=== PATIENT | female | born 1975 ===

== ENCOUNTER 2023-11-15 10:44 | Observation (INO) ==
--- NOTE | 2023-11-03 21:34 | Anesthesiology Consultation ---
Date of Service November 03, 2023 Assessment & Plan (1) Encounter for pre-operative examination: - Check test AM DOS - Infectious disease screening: Per assessment on 11/03/23: No known recent infectious disease contacts or current infectious disease symptoms. Chart Review Chart Review: Acceptable Risk for Surgery and Patient NOT seen in Pre Admission Testing History Surgery Operation Date: 11/15/23 12:45 Proposed Procedures p Robotic Laparoscopic Removal of the Uterus and Both Fallopian Tubes, Removal of Left Ovary and Possible Removal of Right Ovary, Cystoscopy - Adam Alcantara MD Height/Weight Height: 5 ft Weight: 49.895 kg Allergies Allergy/AdvReac Type Severity Reaction Status Date / Time amoxicillin [From Augmentin] Allergy Unknown nausea/vomi Verified 11/03/23 15:00 ting cephalexin [From Keflex] Allergy Unknown nausea/vomi Verified 11/03/23 15:00 ting clavulanic acid Allergy Unknown nausea/vomi Verified 11/03/23 15:00 [From Augmentin] ting sulfamethoxazole Allergy Unknown Rash Verified 11/03/23 15:00 [From Bactrim] trimethoprim [From Bactrim] Allergy Unknown Rash Verified 11/03/23 15:00 fexofenadine [From [place]] AdvReac Intermediate lightheaded Verified 11/03/23 15:00 ness Medications Home Medications Medication Instructions Recorded Confirmed Last Taken acetaminophen 500 mg tablet 500 mg PO Q6H PRN prn 09/18/20 11/03/23 Unknown (Tylenol Extra Strength) cetirizine 10 mg tablet (Zyrtec) 10 mg PO QPM PRN prn 09/18/20 11/03/23 Unknown naproxen sodium 220 mg tablet 220 mg PO BID PRN prn 09/18/20 11/03/23 Unknown (Aleve) cholecalciferol (vitamin D3) 50 50 mcg PO QPM 09/19/21 11/03/23 Unknown mcg (2,000 unit) capsule multivitamin (Daily Multi-Vitamin 1 tab PO QAM 09/19/21 11/03/23 Unknown tablet) Lactobacillus acidophilus 250 1,000 mmu cells PO QPM 11/03/23 11/03/23 Unknown million cell capsule (Probiotic Acidophilus) ibuprofen 200 mg tablet 200 mg PO Q6H PRN prn 11/03/23 11/03/23 Unknown omeprazole magnesium 20 mg 20 mg PO DAILY PRN prn 11/03/23 11/03/23 Unknown tablet,delayed release (Prilosec OTC) Past Medical History Medical History GERD (gastroesophageal reflux disease) Hx of recurrent urinary tract infection Seasonal allergies Past Family History Family History Denies family history of Ovarian cancer Breast cancer Colorectal cancer Uterine cancer Past Surgical History Surgical History History of anesthesia reaction hypotensive during C section (medically managed) History of section History of wisdom tooth extraction Social History Smoking Status: Never smoker Do You Dip or Chew Tobacco: No Hx Alcohol Use: No Hx Substance Use: No substance use type: does not use
[~2023-11-15 10:44] MED LIST: ACETAMINOPHEN 1000 MG/100 ML IV IV ONE; KETAMINE HCL 10MG/ML SYR ONE
[2023-11-15] MEDS ORDERED: MIDAZOLAM HCL 1 MG/ML 2ML VIAL ONE (10:49)
[2023-11-15] MEDS ORDERED: fentaNYL citrate PF 100 MCG/2 ML VIAL ONE (10:49)
[2023-11-15 11:13] LABS: Basophils # (auto) 0.03 K/uL (0.00-0.20); Basophils % (auto) 0.5 %; Eosinophils # (auto) 0.08 K/uL (0.00-0.50); Eosinophils % (auto) 1.4 %; Hematocrit (blood only) 41.7 % (37.0-47.0); Hemoglobin 13.8 g/dl (12.0-16.0); Immature Granulocytes # (auto) 0.02 K/uL (0.01-0.20); Immature Granulocytes % (auto) 0.4 %; Lymphocytes # (auto) 1.58 K/uL (1.20-3.40); Lymphocytes % (auto) 27.8 %; Mean Corpuscular Hemoglobin 29.9 pg (25.0-34.0); Mean Corpuscular Hgb Conc 33.1 g/dL (32.0-36.0); Mean Corpuscular Volume 90.3 fL (80.0-100.0); Mean Platelet Volume 9.9 fL (9.4-12.4); Monocytes # (auto) 0.54 K/uL (0.11-0.59); Monocytes % (auto) 9.5 %; Neutrophils # (auto) 3.44 K/uL (1.40-6.50); Neutrophils % (auto) 60.4 %; Platelet Count 252 K/uL (130-400); RDW Coefficient of Variation 12.4 % (11.5-14.5); RDW Standard Deviation 40.3 fL (36.4-46.3); Red Blood Count 4.62 M/uL (4.20-5.40); White Blood Count 5.69 K/ul (4.8-10.8)
[2023-11-15] MEDS: LACTATED RINGER'S 1,000 ML IV SCH (11:20)
[2023-11-15] MEDS: LR 15ML/HR IV SCH (11:21)
[2023-11-15] MEDS: PHENAZOPYRIDINE HCL 100 MG TAB PO SCH (11:26)
[2023-11-15] MEDS ORDERED: ATROPINE SULFATE 0.1 MG/ML 10ML SYR IV PRN (11:52)
[2023-11-15] MEDS ORDERED: HYDROmorphone INJ 1 MG/ML SYRINGE IV PRN (11:52)
[2023-11-15] MEDS ORDERED: ePHEDrine sulfate 50 MG/ML AMP IV PRN (11:52)
[2023-11-15] MEDS ORDERED: PROMETHAZINE HCL 6.25 MG in SODIUM CHLORIDE 0.9% 50 ML IV PRN (11:52)
[2023-11-15] MEDS ORDERED: ONDANSETRON INJ 2 MG/ML 2 ML VIAL IV PRN (11:52)
[2023-11-15] MEDS: SCOPOLAMINE 1 MG/72 HR TDSY PATCH TD ONE ×2 (11:54)
--- NOTE | 2023-11-15 11:58 | History & Physical Bridge Note ---
Date of Service November 15, 2023 History & Physical Bridge Note I have examined the patient, reviewed the History & Physical and in the interval since the performance of the History & Physical I have noted the following changes of clinical significance: no changes noted
[2023-11-15] MEDS: ceFAZolin 2000MG 2,000 MG/15 ML SYR IV SCH (12:43)
[2023-11-15] MEDS ORDERED: PROPOFOL IV EMULSION 10 MG/ML 20 ML VIAL IV ONE (13:52)
[2023-11-15] MEDS ORDERED: LIDOCAINE 2% 2 ML VIAL/AMP(20MG/ML) INFIL ONE (13:53)
[2023-11-15] MEDS ORDERED: GLYCOPYRROLATE 0.2 MG/ML VIAL ONE (13:53)
[2023-11-15] MEDS ORDERED: ROCURONIUM BROMIDE 10 MG/ML 5 ML VIAL IV ONE ×3 (13:53→15:35)
[2023-11-15] MEDS ORDERED: SODIUM CHLORIDE 0.9% PF INJ 10 ML VIAL ONE (13:53)
[2023-11-15] MEDS ORDERED: ePHEDrine sulfate 50 MG/ML AMP ONE (13:53)
[2023-11-15] MEDS ORDERED: SUGAMMADEX SODIUM 200 MG/2 ML VIAL IV ONE (14:10)
[2023-11-15] MEDS: ceFAZolin 2000MG 2,000 MG/15 ML SYR IV ONE (16:55)
[2023-11-15] MEDS: BUPIVACAINE 0.5 % 5 MG/1 ML MPF 30ML VIAL ONE (17:00)
--- NOTE | 2023-11-15 17:12 | Operative Report ---
PG Post Operative Report Pre & Post Diagnosis Operation Date: 11/15/23 12:30 Pre-Op Diagnosis: Endometrioma of Ovary, Endometriosis, Chronic Pelvic Pain, Menorrhagia, Dysmenorrhea, Post-Op Diagnosis: Endometrioma of Ovary, Endometriosis, Chronic Pelvic Pain, Menorrhagia, Dysmenorrhea, cystotomy I identified the patient and participated in the time-out.: No Procedure Operation Date: 11/15/23 12:30 Actual Procedures Robot-assisted laparoscopic bladder repair Surgeon Chepe Rodrigues MD Sales Representative Business Courses Gonzalo Perry MD Estimated Blood Loss 0 Findings See Below Cystotomy at the dome of the bladder, repaired and multilayer closure Specimens None Drains Bernabe catheter per urethra Anesthesia Type General Complications none Disposition Disposition: Recovery Room Indications This is a 48-year-old female currently undergoing robot-assisted laparoscopic hysterectomy with intraoperative bladder injury. Urology was consulted for bladder repair. This was initially evaluated by my partner, Dr. Perry who completed most of the repair and he will be coming for a second opinion. Description of Procedure On arrival, the patient was already under anesthesia with the robot docked and the camera surveying the pelvis. The uterus had been removed and the cervical cuff was closed. The dome of the bladder was largely repaired although there was a 1 to 2 mm cystotomy in the mucosal layer. The muscularis layer had not yet been closed. After careful inspection, the existing suture was tied. The cystotomy was closed using an interrupted [id number] suture with 4-0 Monocryl. The bladder was then tested and found to be watertight. The muscularis layer was then closed using a running 3-0 V-Loc suture. Bladder was again leak tested and found to be still watertight. Cystoscopy was performed by my partner, Dr. Perry who will dictate this separately. Of note, there was no leakage of fluid from the bladder during this. At this point, the case was returned to the primary surgeon, Dr. Alcantara, for final inspection closure. I attest to the content of the Intraoperative Record and any orders documented therein. Any exceptions are noted below.
[2023-11-15] MEDS ORDERED: oxyCODONE/ACETAMINOPHEN 5mg/325mg TAB PO PRN ×2 (17:16)
[2023-11-15] MEDS ORDERED: KETOROLAC 30 MG/ML VIAL IV PRN (17:16)
--- NOTE | 2023-11-15 17:16 | Operative Report ---
PG Post Operative Report Pre & Post Diagnosis Operation Date: 11/15/23 12:30 Pre-Op Diagnosis: Endometrioma of Ovary, Endometriosis, Chronic Pelvic Pain, Menorrhagia, Dysmenorrhea Post-Op Diagnosis: Endometrioma of Ovary, Endometriosis, Chronic Pelvic Pain, Menorrhagia, Dys menorrhea I identified the patient and participated in the time-out.: Yes Procedure Operation Date: 11/15/23 12:30 Actual Procedures p Robotic Assisted Laparoscopic Removal of the Uterus and Both Fallopian Tubes, Removal of Both Ovaries, Cystoscopy(Bilateral) - Adam Alcantara MD Robotic assisted repair of intraoperative bladder injury Gonzalo Perry MD, Rodolfo Rodrigues MD Surgeon Gonzalo Perry MD Computer Programmer Chief None Estimated Blood Loss 0 Findings See Below Dense adhesion at dome of bladder to uterus. Significant endometrial implants on anterior abdominal wall. Adhesion was taken down but bladder had been skeletonized and there was a small hole at the dome. This was repaired in 2 layers by combination of myself and Dr. Rodrigues. Backfilling the bladder via cystoscopy showed no leak. Cystoscopy showed repair of a dome bladder injury both ureteral orifices effluxing clear yellow urine. Specimens None Drains 16 Greek Bernabe catheter with 10 cc balloon Anesthesia Type General Complications none Indications 48-year-old female with a history of C-sections who is presenting for hysterectomy. There was a dense adhesion at the dome of the bladder to the uterus and urology was intraoperatively consulted to help take this down. Description of Procedure When I entered the OR, there was a dense bladder adhesion at the dome to the uterus. Using a combination of blunt and sharp dissection, I carefully teased this away from the bladder. I was able to separate this but then manipulating the bladder, the tissue had been thinned significantly and a small hole was made. I closed this hole with 3-0 barbed Vicryl suture in a running fashion. I used two separate sutures and then the tails were tied together. The tissue was fairly friable and I wanted to ensure that her repair came together well as she is young and I did not want a persistent leak or to decrease her bladder c apacity significantly. I had my partner Dr. Rodrigues come in and review what I had fixed initially and asked his opinion on how to appropriately close the bladder in order to minimize any postoperative complications. At this point I scrubbed in to assist bedside and he oversewed a small defect in the bladder with 4-0 Monocryl and then closed the muscular layer with a 3-0 running barbed suture. Please refer to his specific operative note for detailed documentation. I then performed a cystoscopy in order to backfill the bladder and also visualize the repair and ensure the ureters were draining appropriately. The bladder was backfilled via the scope and there was no leak noted intra- abdominally. Both ureteral orifice ease were orthotopic in nature and effluxing clear urine. Repair at the dome was intact. Scope was removed and a 16 Greek Bernabe catheter was replaced and balloon was inflated with 10 cc of sterile water. We then turned the case back over to Dr. Alcantara. I went and spoke with the in the surgical waiting room to discuss our findings and repair and plan moving forward. I attest to the content of the Intraoperative Record and any orders documented therein. Any exceptions are noted below.
--- NOTE | 2023-11-15 17:19 | Post Operative Brief Note ---
PG Immediate Post Op with CF Date of Surgery November 15, 2023 Pre & Post Diagnosis Operation Date: 11/15/23 12:30 Pre-Op Diagnosis: Endometrioma of Ovary, Endometriosis, Chronic Pelvic Pain, Menorrhagia, Dysmenorrhea Post-Op Diagnosis: Endometrioma of Ovary, Endometriosis, Chronic Pelvic Pain, Menorrhagia, Dysmenorrhea I identified the patient and participated in the time-out.: Yes Procedure Operation Date: 11/15/23 12:30 Actual Procedures p Robotic Assisted Laparoscopic Removal of the Uterus and Both Fallopian Tubes, Removal of Both Ovaries, Cystoscopy(Bilateral) - Adam Alcantara MD Surgeon Adam Alcantara MD Preschool Adviser None Estimated Blood Loss 0 Findings Consistent with Post-Op Diagnosis Specimens Specimen Description: A: Uterus, Cervix, Bilateral Fallopian Tubes, Bilateral Ovaries Drains Bernabe Catheter (inserted at start of procedure by surgeon, removed at end of procedure.) Anesthesia Type General CATTLE SORTER Minor Procedure Codes Laparoscopy(ic) 17551 [facility] w/[facility] CATTLE SORTER Major Procedure Codes Hysterectomy 29476 TLH <250g +S/O Laparotomy/Laparoscopic 91163 [facility] w/[facility]
--- NOTE | 2023-11-15 18:23 | Anesthesiology Progress Note ---
Date of Service November 15, 2023 Anesthesia Post Procedure Vital Signs Vital Signs: Temp Pulse Resp BP Pulse Ox O2 Del Method O2 Flow Rate 11/15/23 18:20 60 15 103/63 100 Nasal Cannula 2 11/15/23 18:10 64 12 105/59 L 100 Nasal Cannula 2 11/15/23 18:00 59 L 14 110/60 100 Nasal Cannula 2 11/15/23 17:50 55 L 13 106/57 L 100 Oxymask 6 11/15/23 17:40 52 L 14 100/58 L 100 Oxymask 6 11/15/23 17:34 36.0 C L 60 16 104/56 L 99 Oxymask 6 11/15/23 11:19 36.7 C 62 20 109/53 L 100 Room Air Pain Intensity Pelvic: Pain Intensity: 3 Transfer of Care Handoff Completed per policy Notes Mental Status: alert / awake / arousable and participated in evaluation Patient Amnestic to Procedure: Yes Nausea / Vomiting: adequately controlled Pain: adequately controlled Airway Patency, RR, SpO2: stable & adequate BP & HR: stable & adequate Hydration State: stable & adequate Anesthetic Complications: no major complications apparent
[2023-11-15] MEDS: fentaNYL citrate PF 100 MCG/2 ML VIAL IV PRN (19:25)
[2023-11-15] MEDS: SIMETHICONE 80 MG CHEW PO PRN (20:46)
[2023-11-15] MEDS: ONDANSETRON INJ 2 MG/ML 2 ML VIAL IV PRN (20:46)
[2023-11-15] MEDS: ACETAMINOPHEN 325 MG TAB PO PRN (22:20)
--- NOTE | 2023-11-15 22:24 | Operative Report ---
PG Post Operative Report Pre & Post Diagnosis Operation Date: 11/15/23 12:30 Pre-Op Diagnosis: Endometrioma of Ovary, Endometriosis, Chronic Pelvic Pain, Menorrhagia, Dysmenorrhea Post-Op Diagnosis: Endometrioma of Ovary, Endometriosis, Chronic Pelvic Pain, Menorrhagia, Dys menorrhea I identified the patient and participated in the time-out.: Yes Procedure Operation Date: 11/15/23 12:30 Actual Procedures p Robotic Assisted Laparoscopic Removal of the Uterus and Both Fallopian Tubes, Removal of Both Ovaries, Cystoscopy, extensive lysis of adhesions(Bilateral) - Adam Alcantara MD s Bladder disection, Bladder Repair post extensive lysis of adhesions, cystoscopy - Gonzalo Perry MD Surgeon Adam Alcantara MD Children'S Counselor None Estimated Blood Loss 0 Findings Consistent with Post-Op Diagnosis Left ovarian endometrioma, extensive adhesions from endometriosis as well as bladder adhesions from prior . Specimens Uterus, cervix, bilateral ovaries and bilateral fallopian tubes. Anesthesia Type General Complications none Disposition Disposition: Recovery Room Description of Procedure The patient was taken to the operating room after consents were assured. Upon presentation was properly identified. General endotracheal anesthesia was obtained without difficulty. The patient was then prepped and draped in normal sterile fashion. Preprocedural time-out was performed. A Bernabe catheter was th en placed followed by a [employer] uterine manipulator per automatic transmission mechanic's specifications. The laparoscopic portion of the case was initiated. An 8-mm incision was made at the umbilicus and a Veress needle was inserted through the incision into the abdomen an opening pressure of 6 mmHg was noted. There was noted to be symmetric abdominal rise and tympany over the liver, all consistent with appropriate intraabdominal insufflation. An 8-mm optically guided trocar was introduced through the incision into the abdomen with immediate inspection notable for atraumatic entry. Ports were then placed at right and left lower quadrants under direct visualization with atraumatic entry noted. A 5 mm left upper quadrant port placed. The robot was then docked and the robotic portion of the case was initiated. There was noted to be extensive adhesions related to inflammatory changes from endometriosis. The sigmoid colon was dissected off the left pelvic sidewall and left ovary. The left IP ligament was identified and the ureter was noted to be significantly distal to the IP ligament. The IP ligament was serially cauterized and dissected. The left round ligament was identified, serially cauterized, and dissected. Bladder flap was then initiated anteriorly on the left side and transitioning towards the right. There was noted to be significant bladder peritoneal endometriosis. Attempt was made to remove the endometriosis lesions although there was noted to be a significant bladder adhesion to the lower uterine segment. There is no to be significant inflammatory changes in the left broad ligament. The right round ligament was identified, serially cauterized, and dissected. The right IP ligament was then identified, serially cauterized, and dissected back to the prior dissected round ligament. The bladder flap was then continued anteriorly from the right. There is noted to be severe bladder adhesions to the lower uterine segment/cervix. Greater than 45 minutes of lysis of adhesions was attempted. There was a 2 to 3 cm section where the bladder was very densely adhered to the lower uterine segment and urology was contacted for dissection. Please see urology note for additional details. The right broad ligament was then dissected skeletonizing the right uterine vessels. The bilateral uterine vessels were then serially cauterized and dissected. The colpotomy was then initiated anteriorly and continued circumferentially around the cervix freeing the cervix from the underlying vaginal mucosa. The uterus, cervix, fallopian tubes and ovaries were then brought through the vaginal cuff. The vaginal cuff was reapproximated with V-Loc suture in continuous running stitch. An airtight seal and good hemostasis noted. A bladder repair and cystoscopy was performed by urology. Tisseel was then placed over all vascular pedicles and raw edges. Decision was made to end the laparoscopic portion of the case. Abdomen was desufflated and trocars removed. The incisions were reapproximated with 3-0 Vicryl in a single interrupted stitch. Dermabond placed on top. 10 mL of lidocaine were distributed throughout the 4 incisions. The patient was then awoken from anesthesia and taken to recovery room in stable condition. I attest to the content of the Intraoperative Record and any orders documented therein. Any exceptions are noted below. VEST TAILOR Major Procedure Codes Hysterectomy 53710 TLH <250g +S/O Laparotomy/Laparoscopic 70878 [facility] w/[facility] VEST TAILOR Minor Procedure Codes Laparoscopy(ic) 77428 [facility] w/[facility]
[2023-11-15] MEDS: IBUPROFEN 600 MG TAB PO PRN (23:03)
[2023-11-16] MEDS: CHECK SCOPOLAMINE PATCH PLACEMENT SCH (00:19)
--- NOTE | 2023-11-16 07:56 | Urology Progress Note ---
Date of Service November 16, 2023 Assessment & Plan (1) Intraoperative bladder injury: (2) Encounter for postoperative care: Plan 48-year-old female status post robotic hysterectomy with intraoperative bladder injury which was repaired in 2 layers on 11/15/2023. Discussed intraoperative findings with patient and planned postoperative follow-up Will send oxybutynin to her pharmacy for bladder spasms Maintain Bernabe catheter for 10 days. Will set up plain film cystogram and possible Stable for discharge home from urologic perspective Admission and Anticipated Discharge Date Admission Date: November 15, 2023 Subjective Afebrile with stable vitals overnight. Bernabe catheter is draining clear yellow urine patient feels well with minimal bother from the catheter. Physical Exam Physical Exam: General: Alert and oriented, no acute distress HEENT: Normocephalic, mucous membranes moist Pulmonary: Nonlabored respirations Abdomen: Nondistended, soft, appropriately tender : Bernabe catheter draining yellow urine Extremities: Moves all 4 spontaneously Neuro: No gross deficits Skin: Warm, dry, no rashes noted Results & Data Vital Signs (Past 12 Hours) Vital Signs Temp Pulse Pulse Resp BP Pulse Ox O2 Del Method 11/16/23 03:06 36.5 C 58 L 16 104/55 L 100 Room Air 11/15/23 23:05 36.5 C 62 16 110/63 100 Room Air 11/15/23 21:28 Room Air 11/15/23 20:16 36.5 C 78 18 115/58 L 98 Room Air PG Care Time/CCT Total # of Minutes Spent Total Time Spent with Patient: Total time spent is greater than 50% in coordination of care (as documented) at patient's floor/unit and/or counseling patient: Coding Level of Care Code 57396 SUB INP/OBS CARE 2/35MIN Diagnoses Intraoperative bladder injury N99.81 Encounter for postoperative care Z48.89
--- NOTE | 2023-11-16 08:24 | Gynecologic Progress Note ---
Date of Service November 16, 2023 Assessment & Plan (1) Encounter for postoperative care: Plan: 48-year-old day 1 status post total laparoscopic hysterectomy with bilateral salpingo-oophorectomy and extensive lysis of adhesions with incidental cystotomy with bladder repair. Doing well this morning. Is stable for discharge home with Bernabe catheter. Has planned follow-up with urology Admission and Anticipated Discharge Date Admission Date: November 15, 2023 Subjective No acute events overnight. Having excellent clear urine output. Reports that she had shoulder pain overnight that since improved. Denying any significant pelvic pain otherwise. No bleeding. Results & Data Vital Signs (Past 12 Hours) Vital Signs Temp Pulse Resp BP Pulse Ox O2 Del Method 11/16/23 07:58 36.7 C 85 14 94/50 L 99 Room Air 11/16/23 03:06 36.5 C 58 L 16 104/55 L 100 Room Air 11/15/23 23:05 36.5 C 62 16 110/63 100 Room Air 11/15/23 21:28 Room Air PG Care Time/CCT Total # of Minutes Spent Total Time Spent with Patient: Total time spent is greater than 50% in coordination of care (as documented) at patient's floor/unit and/or counseling patient: Coding Level of Care Code None Diagnoses Encounter for postoperative care Z48.89
== END 2023-11-16 10:55 | disposition home or self-care (01) ==
LOC: ASU 10:44 → 4E1 10:44